=== PATIENT | female | born 1990 | race Caucasian/White ===

== ENCOUNTER 2023-01-07 15:37 | Emergency (ER) | payer MEDICAID ==
[~2023-01-07] VITALS: Ht 170.2 cm; Wt 86.4 kg
[2023-01-07 15:37] VITALS: BP 133/81; TEMP 98.1; O2SAT 97
[2023-01-07] MEDS ORDERED: BUPRENORPHINE HCL 8MG SUBINGUAL TABLET SL STA (19:26)
[2023-01-07] MEDS ORDERED: BUPR8SUB SL (20:17)
== END 2023-01-07 20:31 | disposition home or self-care (01) ==
LOC: M ED 15:37
DX: Z96.0 Presence of urogenital implants (principal)

== ENCOUNTER → 2023-06-25 | Outpatient (REF) | payer MEDICAID, OTHER ==
[~2023-06-25] MED LIST: BUPR8SUB SL
[2023-06-25 19:14] LABS: BASO % 0.7 % (0.0-1.0); EOS # 0.1 10^3/uL (0.0-0.5); EOS % 1.2 % (0.0-3.0); HEMATOCRIT 38.9 % (36.0-47.0); HEMOGLOBIN 12.7 g/dl (12.0-15.5); LYMPH # 2.2 10^3/uL (1.5-5.0); LYMPH % 39.1 % (24.0-44.0); MEAN CORPUSCULAR HEMOGLOBIN 29.1 pg (27.0-33.0); MEAN CORPUSCULAR HGB CONC 32.6 g/dl (32.0-36.5); MEAN CORPUSCULAR VOLUME 89.2 fl (80.0-96.0); MONO # 0.3 10^3/uL (0.0-0.8); PLATELET COUNT, AUTOMATED 255 10^3/uL (150-450); RED BLOOD COUNT 4.36 10^6/uL (4.00-5.40); WHITE BLOOD COUNT 5.7 10^3/uL (4.0-10.0)
[2023-06-25 19:35] LABS: ALBUMIN 3.7 G/DL (3.2-5.2); ALKALINE PHOSPHATASE 60 U/L (46-116); ALT/SGPT 16 U/L (7.0-40); AST/SGOT 15 U/L (<34); BILIRUBIN,TOTAL 0.5 MG/DL (0.3-1.2); BLOOD UREA NITROGEN 15 MG/DL (9-23); CARBON DIOXIDE LEVEL 27 MMOL/L (20-31); CHLORIDE LEVEL 106 MMOL/L (98-107); CHOLESTEROL LEVEL 163 MG/DL (<200); CHOLESTEROL RISK RATIO 2.53 (<5); CREATININE FOR GFR 0.82 MG/DL (0.55-1.30); GLOMERULAR FILTRATION RATE > 60.0 (>60); GLUCOSE, FASTING 74 MG/DL (60-100); HDL CHOLESTEROL 64.2 MG/DL (>40); NON-HDL-C 98.8 MG/DL; POTASSIUM SERUM 4.1 MMOL/L (3.5-5.1); SODIUM LEVEL 139 MMOL/L (136-145); TOTAL PROTEIN 7.1 G/DL (5.7-8.2); TRIGLYCERIDES LEVEL 34 MG/DL (<150)
[2023-06-25 19:37] LABS: TOTAL 25(OH) VITAMIN D 32.4 NG/ML (20.0-100.0)
[2023-06-25 19:59] LABS: HEMOGLOBIN A1c 4.9 % (4.0-6.0)
== END ==
LOC: M LAB REF 17:24
PROVIDERS: ATTEND Nurse Practitioner Family
DX: E66.9 Obesity, unspecified (principal); E55.9 Vitamin D deficiency, unspecified

== ENCOUNTER → 2024-02-13 | Outpatient (CLI) | payer OTHER ==
[2024-02-13 17:54] LABS: HEMATOCRIT 38.6 % (36.0-47.0); HEMOGLOBIN 12.9 g/dl (12.0-15.5); MEAN CORPUSCULAR HEMOGLOBIN 29.9 pg (27.0-33.0); MEAN CORPUSCULAR HGB CONC 33.4 g/dl (32.0-36.5); MEAN CORPUSCULAR VOLUME 89.6 fl (80.0-96.0); PLATELET COUNT, AUTOMATED 184 10^3/uL (150-450); RED BLOOD COUNT 4.31 10^6/uL (4.00-5.40); WHITE BLOOD COUNT 4.9 10^3/uL (4.0-10.0)
[2024-02-13 18:58] LABS: HIV 1&2 SCREEN NEGATIVE (NEGATIVE)
[2024-02-13 19:15] LABS: HEPATITIS C VIRUS ABY INDEX 8.75 INDEX (<0.8)
[2024-02-13 19:29] LABS: GC DNA AMPLIFICATION NEGATIVE (NEGATIVE)
== END ==
LOC: M PLALAB 14:59
PROVIDERS: ATTEND Specialist
DX: Z34.81 Encounter for supervision of other normal pregnancy, first trimester (principal)

== ENCOUNTER → 2024-03-17 | Outpatient (REF) | payer OTHER ==
[2024-03-17 13:44] LABS: TOTAL PROTEIN,RANDOM URINE 16.7 MG/DL (0.0-14.0)
[2024-03-17 13:48] LABS: CREATININE,RANDOM URINE 73.8 MG/DL
== END ==
LOC: M SFHCWAGY 12:17
PROVIDERS: ATTEND Obstetrics & Gynecology
DX: O16.2 Unspecified maternal hypertension, second trimester (principal)

== ENCOUNTER → 2024-04-06 | Outpatient (CLI) | payer MEDICAID, OTHER | LOC: M RAD 14:44 | PROVIDERS: ATTEND Obstetrics & Gynecology | DX: Z36.89 Encounter for other specified antenatal screening (principal) ==

== ENCOUNTER → 2024-05-26 | Outpatient (CLI) | payer OTHER | LOC: M RAD 14:46 | PROVIDERS: ATTEND Obstetrics & Gynecology | DX: Z36.2 Encounter for other antenatal screening follow-up (principal) ==

== ENCOUNTER → 2024-05-26 | Outpatient (CLI) | payer OTHER ==
[2024-05-26 15:26] LABS: HEMATOCRIT 32.3 % (36.0-47.0); HEMOGLOBIN 10.2 g/dl (12.0-15.5); MEAN CORPUSCULAR HEMOGLOBIN 29.1 pg (27.0-33.0); MEAN CORPUSCULAR HGB CONC 31.6 g/dl (32.0-36.5); PLATELET COUNT, AUTOMATED 232 10^3/uL (150-450); RED BLOOD COUNT 3.51 10^6/uL (4.00-5.40); WHITE BLOOD COUNT 7.1 10^3/uL (4.0-10.0)
[2024-05-26 16:16] LABS: Trichomonas vaginalis (AMP) POSITIVE (NEGATIVE)
[2024-05-26 16:49] LABS: GC DNA AMPLIFICATION NEGATIVE (NEGATIVE)
[2024-05-26 17:06] LABS: HIV 1&2 SCREEN NEGATIVE (NEGATIVE)
[2024-05-26 17:24] LABS: HEPATITIS C VIRUS ABY INDEX 6.27 INDEX (<0.8)
[2024-05-29 06:42] LABS: HCV RNA QUANTITATION <15 NOT DETECTED IU/mL (NOT DETECTED); HCV RNA log10 <1.18 NOT DETECTED Log IU/mL (NOT DETECTED)
== END ==
LOC: M PLALAB 13:15
PROVIDERS: ATTEND Obstetrics & Gynecology
DX: Z34.92 Encounter for supervision of normal pregnancy, unspecified, second trimester (principal)
CPT/HCPCS: 36415; 85027; 86780; 86803; 86850; 86900; 86901; 87389; 87522; 87661; 87810; 87850; J2790

== ENCOUNTER 2024-06-28 20:55 | Emergency (ER) | payer OTHER | END 2024-06-28 20:58 | disposition admitted as inpatient to this hospital (09) | LOC: M ED 20:55 | DX: Z53.21 Procedure and treatment not carried out due to patient leaving prior to being seen by health care provider (principal) ==

== ENCOUNTER 2024-06-28 21:05 | Outpatient (CLI) | payer OTHER ==
[~2024-06-28] VITALS: Ht 170.2 cm; Wt 104.2 kg
[2024-06-28 21:22] VITALS: BP 124/59
[2024-06-28 22:02] LABS: BASO % 0.3 % (0.0-1.0); EOS # 0.1 10^3/uL (0.0-0.5); EOS % 0.6 % (0.0-3.0); HEMATOCRIT 30.6 % (36.0-47.0); HEMOGLOBIN 9.9 g/dl (12.0-15.5); LYMPH # 1.6 10^3/uL (1.5-5.0); LYMPH % 18.2 % (24.0-44.0); MEAN CORPUSCULAR HEMOGLOBIN 27.9 pg (27.0-33.0); MEAN CORPUSCULAR HGB CONC 32.4 g/dl (32.0-36.5); MEAN CORPUSCULAR VOLUME 86.2 fl (80.0-96.0); MONO # 0.4 10^3/uL (0.0-0.8); NEUTROPHILS # 6.7 10^3/uL (1.5-8.5); NEUTROPHILS % 75.6 % (36.0-66.0); PLATELET COUNT, AUTOMATED 196 10^3/uL (150-450); RED BLOOD COUNT 3.55 10^6/uL (4.00-5.40); WHITE BLOOD COUNT 8.9 10^3/uL (4.0-10.0)
[2024-06-28 22:15] LABS: INR 0.98; PARTIAL THROMBOPLASTIN TIME 29.7 SECONDS (24.8-34.2); PROTHROMBIN TIME 13.3 SECONDS (12.5-14.5)
[2024-06-28 22:23] LABS: ALBUMIN 2.6 G/DL (3.2-5.2); ALKALINE PHOSPHATASE 126 U/L (35-104); ALT/SGPT 14 U/L (7.0-40); AST/SGOT 17 U/L (<34); BILIRUBIN,TOTAL 0.3 MG/DL (0.3-1.2); BLOOD UREA NITROGEN 9 MG/DL (9-23); CALCIUM LEVEL 7.8 MG/DL (8.5-10.1); CARBON DIOXIDE LEVEL 23 MMOL/L (20-31); CHLORIDE LEVEL 106 MMOL/L (98-107); CREATININE FOR GFR 0.55 MG/DL (0.55-1.30); GLOMERULAR FILTRATION RATE > 90.0 (>60); GLUCOSE, FASTING 125 MG/DL (60-100); POTASSIUM SERUM 3.6 MMOL/L (3.5-5.1); SODIUM LEVEL 137 MMOL/L (136-145); TOTAL PROTEIN 6.1 G/DL (5.7-8.2)
[2024-06-28 23:07] VITALS: BP 123/72
[2024-06-29 01:41] VITALS: BP 114/68
== END 2024-06-29 01:42 | disposition home or self-care (01) ==
LOC: M LDO 21:05
PROVIDERS: ATTEND Advanced Practice Midwife
DX: O26.893 Other specified pregnancy related conditions, third trimester (principal); O99.323 Drug use complicating pregnancy, third trimester; O98.313 Other infections with a predominantly sexual mode of transmission complicating pregnancy, third trimester; R25.2 Cramp and spasm; W19.XXXA Unspecified fall, initial encounter; Z79.891 Long term (current) use of opiate analgesic; A59.9 Trichomoniasis, unspecified; Z87.59 Personal history of other complications of pregnancy, childbirth and the puerperium; Z86.19 Personal history of other infectious and parasitic diseases; Z87.891 Personal history of nicotine dependence; Y92.9 Unspecified place or not applicable; Y93.9 Activity, unspecified; Y99.9 Unspecified external cause status; Z3A.33 33 weeks gestation of pregnancy
CPT/HCPCS: 36415; 59025; 76815; 76820; 80053; 85025; 85384; 85460; 85610; 85730; G0463

== ENCOUNTER → 2024-07-14 | Outpatient (REF) | payer OTHER ==
[~2024-07-14] MED LIST changes: +ACET-683 PO; +ESCI5SOL3 PO; +IBUP80TA PO; +SUBO8MIS SL
== END ==
LOC: M PLALAB 11:06
PROVIDERS: ATTEND Advanced Practice Midwife
DX: O23.593 Infection of other part of genital tract in pregnancy, third trimester (principal); Z3A.00 Weeks of gestation of pregnancy not specified

== ENCOUNTER 2024-08-10 07:56 | Inpatient (IN) | payer OTHER, MEDICAID ==
[~2024-08-10] VITALS: Ht 170.2 cm; Wt 105.6 kg
[2024-08-10] VITALS (42 sets, daily range): BP systolic 102–166; BP diastolic 51–95
[~2024-08-10 07:56] MED LIST changes: -ACET-683 PO; -ESCI5SOL3 PO; -IBUP80TA PO; -SUBO8MIS SL
[2024-08-10] MEDS ORDERED: ESCI5SOL3 PO (08:19)
[2024-08-10] MEDS ORDERED: LIDOCAINE 1% MDV 20 ML VIAL INFIL PRN (09:20)
[2024-08-10] MEDS ORDERED: TRANEXAMIC ACID INJection 1,000 MG in NS 100 ML IV PRN (09:20)
[2024-08-10] MEDS ORDERED: CARBOPROST TROMETHAMINE 250 MCG/ML AMP IM PRN (09:20)
[2024-08-10] MEDS ORDERED: OXYTOCIN DRIP 30 UNITS in IV 1 EA IV PRN (09:20)
[2024-08-10] MEDS ORDERED: METHYLERGONOVINE MALEATE 0.2 MG/ML 1 ML VIAL IM PRN (09:20)
[2024-08-10] MEDS ORDERED: miSOPROStol 200 MCG TABLET PR PRN (09:20)
[2024-08-10 09:29] LABS: HEMATOCRIT 30.6 % (36.0-47.0); HEMOGLOBIN 9.6 g/dl (12.0-15.5); MEAN CORPUSCULAR HEMOGLOBIN 26.4 pg (27.0-33.0); MEAN CORPUSCULAR HGB CONC 31.4 g/dl (32.0-36.5); MEAN CORPUSCULAR VOLUME 84.1 fl (80.0-96.0); PLATELET COUNT, AUTOMATED 224 10^3/uL (150-450); RED BLOOD COUNT 3.64 10^6/uL (4.00-5.40); WHITE BLOOD COUNT 6.8 10^3/uL (4.0-10.0)
[2024-08-10] MEDS: miSOPROStol 50 MCG 1/2 TABLET PO SCH (10:10)
[2024-08-10 10:24] LABS: HIV 1&2 SCREEN NEGATIVE (NEGATIVE)
[2024-08-10 10:39] LABS: HEPATITIS C VIRUS ABY INDEX 5.71 INDEX (<0.8)
[2024-08-10] MEDS ORDERED: diphenhydrAMINE 50 MG/ML VIAL IV PRN (12:10)
[2024-08-10] MEDS ORDERED: ONDANSETRON 4MG 2ML VIAL IV PRN (12:10)
[2024-08-10] MEDS ORDERED: EPIDURAL/PCA KEYS XX PRN (12:10)
[2024-08-10] MEDS ORDERED: LR 500 ML IV PRN (12:10)
[2024-08-10] MEDS ORDERED: NALOXONE INJ 0.4MG/1ML VIAL IV PRN (12:10)
[2024-08-10] MEDS: FENTANYL/ROPIVACAINE/NACL BAG 100 ML EPIDURAL SCH (12:46)
[2024-08-10] MEDS: OXYTOCIN DRIP 30 UNITS in IV 1 EA IV SCH (19:07)
[2024-08-11] MEDS ORDERED: DOCUSATE SODIUM 100 MG CAPSULE PO PRN (02:20)
[2024-08-11] MEDS ORDERED: ACETAMINOPHEN 325 MG TAB PO PRN (02:20)
[2024-08-11] MEDS ORDERED: IBUPROFEN 600 MG TAB PO PRN (02:20)
[2024-08-11] MEDS ORDERED: RHOGAM 300MCG (1500IU) INJ IM SCH (02:20)
[2024-08-11] MEDS: OXYTOCIN DRIP 30 UNITS in IV 1 EA IV SCH (02:20)
[2024-08-11] MEDS ORDERED: ACETAMINOPHEN 500 MG TAB PO PRN (02:20)
[2024-08-11] MEDS ORDERED: ONDANSETRON 4MG 2ML VIAL IV PRN (02:20)
[2024-08-11] MEDS ORDERED: LR 1,000 ML IV SCH (02:20)
[2024-08-11] MEDS ORDERED: CALCIUM CARBONATE 500 MG CHEW U/D PO PRN (02:20)
[2024-08-11] MEDS ORDERED: METHYLERGONOVINE MALEATE 0.2 MG TAB PO PRN (02:20)
[2024-08-11] MEDS ORDERED: ANUSOL HC CREAM 30 GM TOP PRN (02:20)
[2024-08-11 04:28] VITALS: BP 125/59; O2SAT 96
[2024-08-11] MEDS: IBUPROFEN 800 MG TAB PO PRN (04:47)
[2024-08-11] MEDS: DIBUCAINE 1% OINTMENT 30 GM TOP PRN (04:47)
[2024-08-11 06:00] VITALS: BP 122/65; O2SAT 98
[2024-08-11] MEDS: ESCITALOPRAM OXALATE 10 MG TABLET PO SCH (07:52)
[2024-08-11] MEDS: PRENATAL VITAMINS CHEWABLE TABLET PO SCH (07:53)
[2024-08-11] MEDS ORDERED: SUBO8MIS SL (08:53)
[2024-08-11] MEDS: BUPRENORPHINE/NALOXONE 2-0.5MG SUBLINGUAL TABLET(SUBOXONE) SL SCH (13:38)
[2024-08-11 17:17] LABS: HCV RNA QUANTITATION <15 NOT DETECTED IU/mL (NOT DETECTED); HCV RNA log10 <1.18 NOT DETECTED Log IU/mL (NOT DETECTED)
[2024-08-11 18:00] VITALS: BP 145/65; O2SAT 98
[2024-08-12 06:00] VITALS: BP 129/71; O2SAT 98
[2024-08-12] MEDS ORDERED: IBUP80TA PO (10:23)
[2024-08-12] MEDS ORDERED: ACET-683 PO (10:23)
[2024-08-12 12:45] VITALS: BP 111/55
[2024-08-13] MEDS ORDERED: MEASLES,MUMPS,RUBELLA VACCINE INJ (MMR-II) SC.IMMUN ONE (09:00)
== END 2024-08-12 13:15 | disposition home or self-care (01) | DRG 560 ==
LOC: M LDI 07:56 → M OBS 08-11 04:19
PROVIDERS: ADMIT Obstetrics & Gynecology; ATTEND Obstetrics & Gynecology
PROC: 3E0P7GC Introduction of Other Therapeutic Substance into Female Reproductive, Via Natural or Artificial Opening (ICD-10-PCS; 2024-08-10)
PROC: 10E0XZZ Delivery of Products of Conception, External Approach (ICD-10-PCS; principal; 2024-08-11)
PROC: 0HQ9XZZ Repair Perineum Skin, External Approach (ICD-10-PCS; 2024-08-11)
DX: O70.0 First degree perineal laceration during delivery (principal); Z3A.39 39 weeks gestation of pregnancy; Z79.899 Other long term (current) drug therapy; Z37.0 Single live birth